=== PATIENT | male | born 1975 | race Caucasian/White ===

== ENCOUNTER 2016-12-18 03:40 | Emergency (ER) | payer BC ==
[~2016-12-18] VITALS: Ht 167.6 cm; Wt 85.1 kg
[~2016-12-18 03:40] MED LIST: DXY100 PO
[2016-12-18 03:43] VITALS: Ht 167.6 cm; Wt 85.1 kg
[2016-12-18] MEDS ORDERED: ONDANSETRON INJ 2 MG/ML 2 ML VIAL IV STA (03:50)
[2016-12-18] MEDS ORDERED: HYDROmorphone INJ 1 MG/ML SYR IV STA (03:50)
[2016-12-18] MEDS ORDERED: SODIUM CHLORIDE 0.9% 1000ML 1,000 ML IV STA (03:50)
[2016-12-18 04:14] LABS: BASO % 0.7 %; BASO ABS # 0.06 K/uL (0-0.2); COMPLETE YES; EOS % 3.2 %; HEMATOCRIT 42.9 % (42-52); IG% 0.2 %; LYMPH % 33.7 %; MEAN CELL VOLUME 91.5 fL (80-100); MEAN CORPUSCULAR HEMOGLOBIN 32.2 pg (25-34); MEAN CORPUSCULAR HGB CONC 35.2 g/dl (32-36); MEAN PLATELET VOLUME 11.1 fL (7.4-10.4); NEUT % 53.2 %; PLATELET COUNT 235 K/uL (130-400); RED BLOOD COUNT 4.69 M/uL (4.7-6.1); WHITE BLOOD COUNT 8.01 K/uL (4.8-10.8)
--- NOTE | 2016-12-18 04:23 | EMERGENCY ROOM VISIT NOTE ---
History Report prepared by Angel: Janna Henriquez Under the Supervision of: Dr. Anoop Corley M.D. First contact with patient: 03:47 Chief Complaint: FLANK PAIN Stated Complaint: KIDNEY PAIN History of Present Illness The patient is a 41 year old male who presents to the Emergency Room with complaints of worsening right flank pain starting 2 hours ago. The patient states that the pain woke him up from his sleep. He complains of nausea. He notes he took Ibuprofen with no relief. The patient denies a history of kidney stones, urinary symptoms, a reason to be dehydrated, injury, trauma, pain radiating to groin, and ankle swelling. He currently rates his pain as an 8/10 in severity. Source of History: patient Onset: 2 hours ago Position: other (right flank) Symptom Intensity: 8/10 Quality: other (global) Timing: worsening Associated Symptoms: + nausea, No urinary symptoms Note: The patient denies a history of kidney stones, a reason to be dehydrated, injury , trauma, pain radiating to groin, and ankle swelling. Review of Systems See HPI for pertinent positives & negatives. A total of 10 systems reviewed and were otherwise negative. Past Medical & Surgical Medical Problems: (1) No Known Active Medical Problems Family History Patient reports no known family medical history. Social History Smoking Status: Never Smoker Marital Status: single Housing Status: lives alone Occupation Status: employed Current/Historical Medications No Active Prescriptions or Reported Meds Allergies Coded Allergies: No Known Allergies (Unverified , 12/18/16) Physical Exam Vital Signs Date Time Temp Pulse Resp B/P (MAP) Pulse Ox O2 Delivery O2 Flow Rate FiO2 12/18/16 04:52 76 12/18/16 04:48 36.4 60 20 121/78 99 Room Air 12/18/16 03:43 67 20 143/94 99 Room Air Physical Exam GENERAL: Patient is well appearing and in moderate distress. Nauseous appearing. HEENT: No acute trauma, normocephalic atraumatic, mucous membranes moist, no nasal congestion, no scleral icterus. NECK: No stridor, no adenopathy, no meningismus, trachea is midline. LUNGS: No dyspnea. Clear to auscultation and equal bilaterally. No wheeze, no rhonchi. HEART: Regular rate and rhythm. No murmurs, rubs, gallops appreciated. ABDOMEN: Soft, nontender, bowel sounds positive, no masses appreciated, no peritonitis. BACK: No midline tenderness, no CVA tenderness EXTREMITIES: Normal motion all extremities, no cyanosis, no edema. NEUROLOGIC: Alert and oriented, no acute motor or sensory deficits, no focal weakness, cranial nerves grossly intact. SKIN: No rash, no jaundice. Pale and diaphoretic. Medical Decision & Procedures Laboratory Results 12/18/16 04:00 Red Blood Count 4.69, Mean Corpuscular Volume 91.5, Mean Corpuscular Hemoglobin 32.2, Mean Corpuscular Hemoglobin Concent 35.2, Mean Platelet Volume 11.1, Neutrophils (%) (Auto) 53.2, Lymphocytes (%) (Auto) 33.7, Monocytes (%) (Auto) 9.0, Eosinophils (%) (Auto) 3.2, Basophils (%) (Auto) 0.7, Neutrophils # (Auto) 4.25, Lymphocytes # (Auto) 2.70, Monocytes # (Auto) 0.72, Eosinophils # (Auto) 0.26, Basophils # (Auto) 0.06 12/18/16 04:00 Test 12/18/16 04:00 12/18/16 05:06 White Blood Count 8.01 K/uL (4.8-10.8) Red Blood Count 4.69 M/uL (4.7-6.1) Hemoglobin 15.1 g/dL (14.0-18.0) Hematocrit 42.9 % (42-52) Mean Corpuscular Volume 91.5 fL (80-100) Mean Corpuscular Hemoglobin 32.2 pg (25-34) Mean Corpuscular Hemoglobin Concent 35.2 g/dl (32-36) Platelet Count 235 K/uL (130-400) Mean Platelet Volume 11.1 fL (7.4-10.4) Neutrophils (%) (Auto) 53.2 % Lymphocytes (%) (Auto) 33.7 % Monocytes (%) (Auto) 9.0 % Eosinophils (%) (Auto) 3.2 % Basophils (%) (Auto) 0.7 % Neutrophils # (Auto) 4.25 K/uL (1.4-6.5) Lymphocytes # (Auto) 2.70 K/uL (1.2-3.4) Monocytes # (Auto) 0.72 K/uL (0.11-0.59) Eosinophils # (Auto) 0.26 K/uL (0-0.5) Basophils # (Auto) 0.06 K/uL (0-0.2) RDW Standard Deviation 42.1 fL (36.4-46.3) RDW Coefficient of Variation 12.6 % (11.5-14.5) Immature Granulocyte % (Auto) 0.2 % Immature Granulocyte # (Auto) 0.02 K/uL (0.00-0.02) Anion Gap 8.0 mmol/L (3-11) Est Creatinine Clear Calc Drug Dose 72.4 ml/min Estimated GFR () 72.8 Estimated GFR (Non- 62.8 BUN/Creatinine Ratio 8.7 (10-20) Calcium Level 8.8 mg/dl (8.5-10.1) Total Bilirubin 0.3 mg/dl (0.2-1) Direct Bilirubin < 0.1 mg/dl (0-0.2) Aspartate Amino Transf (AST/SGOT) 28 U/L (15-37) Alanine Aminotransferase (ALT/SGPT) 62 U/L (12-78) Alkaline Phosphatase 71 U/L (45-117) Total Protein 7.8 gm/dl (6.4-8.2) Albumin 4.0 gm/dl (3.4-5.0) Lipase 146 U/L (73-393) Urine Color YELLOW Urine Appearance CLEAR (CLEAR) Urine pH 5.0 (4.5-7.5) Urine Specific [place] 1.021 (1.000-1.030) Urine Protein NEG (NEG) Urine Glucose (UA) NEG (NEG) Urine Ketones NEG (NEG) Urine Occult Blood 3+ (NEG) Urine Nitrite NEG (NEG) Urine Bilirubin NEG (NEG) Urine Urobilinogen NEG (NEG) Urine Leukocyte Esterase NEG (NEG) Urine WBC (Auto) 1-5 /hpf (0-5) Urine RBC (Auto) >30 /hpf (0-4) Urine Hyaline Casts (Auto) 0 /lpf (0-5) Urine Epithelial Cells (Auto) 0-5 /lpf (0-5) Urine Bacteria (Auto) NEG (NEG) Laboratory results as reviewed by me. Medications Administered Medications (Trade) Dose Ordered Sig/Kiana Route Start Time Stop Time Status Last Admin Dose Admin Sodium Chloride 1,000 ml @ 999 mls/hr Q1H1M STAT IV 12/18/16 03:50 12/18/16 04:50 DC 12/18/16 04:01 999 MLS/HR Ondansetron HCl (Zofran Inj) 4 mg NOW STAT IV 12/18/16 03:50 12/18/16 03:52 DC 12/18/16 04:01 4 MG Hydromorphone HCl (Dilaudid Inj) 1 mg NOW STAT IV 12/18/16 03:50 12/18/16 03:52 DC 12/18/16 04:03 1 MG ED Course 0348: The patient was evaluated in room B10. A complete history and physical exam was performed. 0350: Ordered Dilaudid Inj 1 mg IV, Zofran Inj 4 mg IV, NSS 1000 ml @ 999 mls/ hr IV. 0423: I reevaluated the patient and he is feeling much better. Medical Decision Differential: Renal Colic, Pyelonephritis, Hydronephrosis, Appendicitis, Diverticulitis, Retroperitoneal Bleed/Infection, Aortic Pathology, MSK, Neurologic Pathology, amongst other pathologies entertained. 41 yr old male with acute right flank pain awakening him from sleep. CT with 2 mm UVJ stone and minimal hydro. UA with blood no infection. Labs look OK. Stable and feeling much better after IV pain meds, fluids, anti-emetics. Monitored for several hours and deemed awake, alert and sober. I feel he is stable for discharge to drive himself home. Will send with Oxy IR to go for residual pain though I suspect he has passed the stone by now. Advised Urology follow up given other stones and enlarged prostate. Medication Reconcilliation Current Medication List: was personally reviewed by me Blood Pressure Screening Patient's blood pressure: Elevated blood pressure Blood pressure disposition: Elevated BP felt to be situational Impression Primary Impression: Right ureteral stone Additional Impressions: Kidney stones Enlarged prostate Scribe Attestation The scribe's documentation has been prepared under my direction and personally reviewed by me in its entirety. I confirm that the note above accurately reflects all work, treatment, procedures, and medical decision making performed by me. Departure Information Dispostion Home / Self-Care Prescriptions No Active Prescriptions or Reported Meds Referrals Debbie,Christopher T. M.D. Patient Instructions Kidney Stones Expectant Therapy, My [facility] Additional Instructions Your CT scan noted some remaining stones throughout both kidneys as well as a mildly enlarged prostate. It would likely be beneficial to follow up with a Urologist to discuss these findings further on a non-emergent basis. You have received a narcotic pain medication. These medications may cause drowsiness and should not be used with other sedative medications. Do not drive , drink alcohol, perform dangerous activities, nor make important decisions after taking these medications. senior living use or inappropriate use may lead to addiction. Problem Qualifiers
[2016-12-18 04:42] LABS: ALT/SGPT 62 U/L (12-78); AST/SGOT 28 U/L (15-37); BLOOD UREA NITROGEN 12 mg/dl (7-18); BUN/CREATININE RATIO 8.7 (10-20); CALCIUM 8.8 mg/dl (8.5-10.1); CARBON DIOXIDE 26 mmol/L (21-32); CHLORIDE 105 mmol/L (98-107); GLUCOSE 136 mg/dl (70-99); POTASSIUM 3.6 mmol/L (3.5-5.1); SODIUM 139 mmol/L (136-145)
[2016-12-18 04:44] LABS: ALKALINE PHOSPHATASE 71 U/L (45-117)
[2016-12-18 05:24] LABS: URINE APPEARANCE CLEAR (CLEAR); URINE BILIRUBIN NEG (NEG); URINE COLOR YELLOW; URINE EPITHELIAL CELL AUTO 0-5 /lpf (0-5); URINE NITRITE NEG (NEG); URINE SPECIFIC GRAVITY 1.021 (1.000-1.030); UROBILINOGEN NEG (NEG); ZZUR CULT IF INDIC CLEAN CATCH NO
[2016-12-18 05:36] LABS: MANUAL MICROSCOPIC REQUIRED? NO; REVIEW REQ? NO
[2016-12-18] MEDS ORDERED: OXYCODONE IR HOME PACK PO ONE (06:30)
[2016-12-18 06:32] VITALS: BP 136/72; PULSE 75; TEMP 36.6; O2SAT 99
--- NOTE | 2016-12-18 07:40 | DIAGNOSTIC IMAGING REPORT ---
CT SCAN OF THE ABDOMEN AND PELVIS WITHOUT IV CONTRAST CLINICAL HISTORY: Right flank pain. COMPARISON STUDY: No priors. TECHNIQUE: CT scan of the abdomen and pelvis is performed from the lung bases to the proximal femora. Images are reviewed in the axial, sagittal, and coronal planes. IV contrast was not administered for this examination as per the referring clinician. A dose lowering technique was utilized adhering to the principles of ALARA. CT DOSE: 826.46 mGy.cm FINDINGS: Lung bases: The heart is normal in size and without pericardial effusion. The lung bases are clear noting dependent atelectasis. Liver: The unenhanced liver is normal in size, contour, and attenuation. There is no intrahepatic biliary ductal dilatation. Gallbladder: Unremarkable. Spleen: Normal in size and attenuation. Pancreas: Unremarkable. Adrenal glands: Unremarkable. Kidneys: The unenhanced kidneys are normal in size. There is a 3 mm obstructing calculus at the right vesicoureteral junction seen on axial image #387. This causes minimal right-sided hydronephrosis. There are numerous (greater than 5 in each kidney) additional bilateral nonobstructing renal calculi measuring up to 5 mm. No left-sided hydronephrosis is seen. There is no evidence of contour deforming renal mass lesion. Abdominal vasculature: The abdominal aorta is normal in course and caliber. Bowel: The small bowel and colon are normal in course and caliber. The appendix is well-visualized and normal. Peritoneum: There is no intraperitoneal free air or abdominal ascites. There is a small fat-containing umbilical hernia. Lymphadenopathy: None. Pelvic viscera: The bladder, prostate, and seminal vesicles are normal as visualized. There are small bilateral fat-containing hernias. Skeletal structures: No lytic or blastic lesions are seen. IMPRESSION: 1. There is a 3 mm obstructing calculus at the right vesicoureteral junction. This causes minimal right-sided hydronephrosis. 2. There are numerous additional bilateral nonobstructing renal calculi. 3. There are small bilateral fat-containing inguinal hernias. Electronically signed by: Selvin Sams M.D. 12/18/2016 7:38 AM Dictated Date/Time: 12/18/2016 7:19 AM
== END 2016-12-18 06:36 | disposition home or self-care (01) ==
LOC: C.EDB 03:41
DX: N20.0 Calculus of kidney (principal); N40.0 Benign prostatic hyperplasia without lower urinary tract symptoms